=== PATIENT | male | born 1980 | race Caucasian/White ===

== ENCOUNTER 2019-01-19 08:28 | Outpatient (CLI) | payer OTHER ==
[2019-01-19] MEDS ORDERED: GADOBUTROL 10 MMOL/10 ML VIAL ONE (10:27)
[2019-01-19] MEDS ORDERED: GADOBUTROL 10 MMOL/10 ML VIAL IVP ONE (10:31)
--- NOTE | 2019-01-19 14:55 | MRI Report ---
Reason: LOCALIZED SWELLING, MASS AND LUMP, HEAD Procedure Date: 01/19/2019 Accession Number: [id number] / [id number] Procedure: MRI - Neck Soft Tissue W/WO CPT Code: FULL RESULT: EXAM: MRI SOFT TISSUE NECK WITHOUT AND WITH CONTRAST EXAM DATE: 01/19/2019 10:55 AM. CLINICAL HISTORY: Localized swelling. Swelling under tongue that has subsided. COMPARISON: MRI cervical spine from today. TECHNIQUE: Multiplanar, multisequence T1-weighted and fluid-sensitive MR sequences of the neck soft tissues were performed. Other: None. IV Contrast: 10 mL Gadavist. FINDINGS: There is asymmetry with the sublingual glands on the left being enlarged relative to the right. No focal fluid collection is seen in the floor of mouth. No mass is present in the nasopharynx. Parapharyngeal fat is symmetric. No mass is seen in the palatine tonsil. Thyroid gland is not enlarged. No mass is identified in either parotid or submandibular gland. No lymphadenopathy is present in the neck. No lymphadenopathy is seen in the visualized upper mediastinum. Retention cyst/polyp formation is seen in the left maxillary sinus. Right maxillary sinus mucosal thickening is present. IMPRESSION: 1. Asymmetry is seen with the sublingual glands on the left mildly enlarged relative to the right. No discrete mass is present in the sublingual glands on the left. A resolving sialadenitis is high on the differential given the patient's history. 2. The MRI of the neck is otherwise normal. [facility]
--- NOTE | 2019-01-19 14:55 | MRI Report ---
Reason: LOCALIZED SWELLING, MASS AND LUMP, HEAD Procedure Date: 01/19/2019 Accession Number: [id number] / [id number] Procedure: MRI - Cervical Spine W/WO CPT Code: FULL RESULT: EXAM: MRI CERVICAL SPINE WITHOUT AND WITH CONTRAST EXAM DATE: 01/19/2019 10:07 AM. CLINICAL HISTORY: Localized swelling, mass and lump, head. COMPARISON: MRI soft tissue neck 01/19/2019. TECHNIQUE: Multiplanar, multisequence T1-weighted and fluid-sensitive sequences of the cervical spine before and after administration of intravenous contrast. Other: None. IV contrast: 10 mL Gadavist. FINDINGS: No suspicious marrow replacement is identified. No abnormal signal or enhancement is present in the cervical spinal cord. Minimal grade 1 retrolisthesis of C4 relative to C5 and C5 relative to C6 is noted. Mild loss of disk space height is seen at C6-C7. C2-C3: No posterior disk protrusion. C3-C4: Posterior bulge of the annulus. C4-C5: Minimal posterior disk protrusion. C5-C6: A tiny disk/osteophyte complex is seen involving the posterior lateral margin of the disk bilaterally. Minimal uncovertebral joint spurring. No stenosis C6-C7: A moderate posterior disk protrusion is seen. Disk material extends inferior to the disk space on the right. Disk material extends into the left foramen. Moderate left foraminal stenosis is seen. Right foraminal narrowing is present. C7-T1: No posterior disk protrusion. IMPRESSION: 1. A moderate posterior disk protrusion is seen at C6-C7 with extension into the left foramen and moderate left foraminal stenosis. 2. Minimal degenerative disk disease, osteophyte formation, and uncovertebral joint spurring are seen at C5-C6 without stenosis. 3. Minimal degenerative disk disease is present at C4-C5. RAD[facility]
== END 2019-01-19 08:29 | disposition home or self-care (01) ==
LOC: DI 08:28
PROVIDERS: ATTEND General Practice
DX: M50.31 Other cervical disc degeneration, high cervical region (principal); M50.221 Other cervical disc displacement at C4-C5 level; M48.02 Spinal stenosis, cervical region; K11.1 Hypertrophy of salivary gland
CPT/HCPCS: 70543; 72156; A9585

== ENCOUNTER 2019-02-02 11:16 | Emergency (ER) | payer OTHER ==
[2019-02-02] MEDS ORDERED: CYCLOBENZAPRINE 10 MG TABLET PO STA (11:46)
[2019-02-02] MEDS ORDERED: KETOROLAC 60 MG/2 ML VIAL IM STA (11:46)
--- NOTE | 2019-02-02 11:49 | ED Physician Documentation ---
PD HPI BACK PAIN - Stated complaint Stated Complaint: LOW BACK PX - Chief complaint Chief Complaint: Back Pain - History obtained from History obtained from: Patient, Family - History of Present Illness Timing - onset: How many weeks ago (2), Chronic (has chronic pain, flares every year) Timing - details: Gradual onset Pain level max: 8 Pain level now: 8 Location: Lower, Right, Left Quality: Pain, Spasm, Similar to prior episodes Associated symptoms: No: Fever, Weakness, Numbness, Incontinent of urine, Unable to urinate, Hematuria, Incontinent of stool Improves with: Rest Worsened by: Movement Contributing factors: No: Lifting, Twisting, Trauma, Anticoagulated, Cancer, IVDA, Out of meds - Additional information Additional information: Patient with chronic back pain. States he flares once or twice per year. Worse with movement, better with rest. States that he saw his chiropractor and it did feel better initially but is now tightening up again. States pain meds and muscle relaxants normally help. Review of Systems Constitutional: denies: Fever, Chills GI: denies: Vomiting, Diarrhea : denies: Dysuria, Frequency, Hesitancy, Unable to Void, Incontinent Skin: denies: Rash Musculoskeletal: denies: Neck pain Neurologic: denies: Focal weakness, Numbness PD PAST MEDICAL HISTORY - Past Medical History Past Medical History: Yes : Kidney stones Musculoskeletal: Chronic back pain - Past Surgical History Past Surgical History: Yes General: Bowel surgery - Present Medications Home Medications: Ambulatory Orders Medication Instructions Recorded Confirmed Cyclobenzaprine [Flexeril] 10 mg PO TID PRN #20 tablet 02/02/19 Hydrocodone/Acetaminophen 1 - 2 each PO Q6H PRN #14 tablet 02/02/19 [Hydrocodon-Acetaminophen 5-325] Meloxicam [Mobic] 15 mg PO DAILY PRN #20 tablet 02/02/19 - Allergies Allergies/Adverse Reactions: Allergies Allergy/AdvReac Type Severity Reaction Status Date / Time No Known Drug Allergies Allergy Verified 02/02/19 11:27 - Social History Does the pt smoke?: Yes Smoking Status: Current every day smoker Does the pt drink ETOH?: Yes Does the pt have substance abuse?: No - Immunizations Immunizations are current?: Yes - POLST Patient has POLST: No PD ED PE NORMAL - Vitals Vital signs reviewed: Yes - General General: Alert and oriented X 3, No acute distress, Well developed/nourished - Neck Neck: Supple, no meningeal sign, No bony TTP - Cardiac Cardiac: RRR - Respiratory Respiratory: No respiratory distress, Clear bilaterally - Abdomen Abdomen: Soft, Non tender, Non distended - Back Back: No spinal TTP - Derm Derm: Warm and dry - Extremities Extremities: Other (Normal bilateral lower extremity patellar and ankle jerk reflexes. Normal great toe extension bilaterally. no saddle anesthesia) - Neuro Neuro: Alert and oriented X 3, No motor deficit, No sensory deficit - Psych Psych: Normal mood, Normal affect Results - Vitals Vitals: Vital Signs - 24 hr 02/02/19 02/02/19 11:22 12:19 Temperature 36.6 C Heart Rate 80 68 Respiratory 16 14 Rate Blood Pressure 180/79 H 118/67 O2 Saturation 97 98 Oxygen O2 Source Room air PD MEDICAL DECISION MAKING - ED course Complexity details: considered differential (No cauda equina, no spinal epidural abscess, no fracture, no aortic dissection or evidence of aneursym rupture), d/w patient ED course: Patient with acute on chronic back pain. Given Toradol and Flexeril. Will place on pain medication and muscle relaxants for home. Patient is well- appearing, nontoxic. Afebrile. Normal neurological exam. Patient counseled regarding signs and symptoms for which I believe and urgent re-evaluation would be necessary. Patient with good understanding of and agreement to plan and is comfortable going home at this time This document was made in part using voice recognition software. While efforts are made to proofread this document, sound alike and grammatical errors may occur. Departure - Departure Disposition: 01 Home, Self Care Clinical Impression: Back pain Qualifiers: Back pain location: low back pain Chronicity: chronic Back pain laterality: unspecified Sciatica presence: without sciatica Qualified Code(s): M54.5 - Low back pain Condition: Good Instructions: ED Neck Back Pain General Follow-Up: ELIZA CHO [Primary Care Provider] - Within 1 week Prescriptions: Cyclobenzaprine [Flexeril] 10 mg PO TID PRN #20 tablet PRN Reason: Spasms Hydrocodone/Acetaminophen [Hydrocodon-Acetaminophen 5-325] 1 - 2 each PO Q6H PRN #14 tablet PRN Reason: pain Meloxicam [Mobic] 15 mg PO DAILY PRN #20 tablet PRN Reason: pain Comments: Use the medications as prescribed. Return if you worsen. Follow-up with your doctor for further evaluation and care. Do not drink alcohol or drive while on narcotic pain medicine. Note that many narcotic pain relievers also contain tylenol/acetaminophen. Please ensure that your total dose of acetaminophen from all sources does not exceed 3 grams (3000mg) per day. You may constipated on this medication, take a stool softener such as "Colace" twice a day while you are on it. Also recommend a [id number] laxative such as senna or MiraLAX any day that you do not have a bowel movement. If you received narcotic pain medication in the emergency department, do not drive or operate machinery for the next 24 hours. Discharge Date/Time: 02/02/19 12:19
[2019-02-02 12:19] VITALS: BP 118/67
== END 2019-02-02 12:19 | disposition home or self-care (01) ==
LOC: ED 11:16
DX: G89.29 Other chronic pain (principal); M54.5 Low back pain; F17.200 Nicotine dependence, unspecified, uncomplicated
CPT/HCPCS: 96372; 99282; 99283; A9270